=== PATIENT | male | born 1955 | race American Indian/Alaskan Native ===

== ENCOUNTER 2016-05-22 15:26 | Outpatient (CLI) | payer OTHER ==
--- NOTE | 2016-05-22 16:41 | XRay Report ---
Right shoulder 3 views: History: Right shoulder pain. Findings: Mild arthritic changes of the a.c. joint. Moderate to severe arthritic changes in the glenohumeral joint. No fracture dislocation or soft tissue calcification. Impression: Arthritic changes right shoulder.
== END 2016-05-22 15:27 | disposition home or self-care (01) ==
LOC: XRAY 15:26
PROVIDERS: ATTEND Internal Medicine
DX: M25.511 Pain in right shoulder (principal)

== ENCOUNTER 2016-05-23 15:31 | Outpatient (CLI) | payer OTHER ==
[2016-05-23 15:46] LABS: Basophils % (Auto) 0.9 % (0.0-1.8); Eosinophils % (Auto) 5.3 % (0.0-4.3); Hematocrit 41.5 % (35.5-45.6); Hemoglobin 14.5 gm/dl (11.8-15.2); Mean Corpuscular HGB Conc 35 % (32-34); Mean Corpuscular Hemoglobin 34 pg (28-32); Mean Corpuscular Volume 97 fl (84-94); Platelet Count 189 K/mm3 (140-440); Red Blood Count 4.27 M/mm3 (3.65-5.03); Red Cell Distribution Width 12.6 % (13.2-15.2)
[2016-05-23 16:21] LABS: Alanine Aminotransferase 49 units/L (7-56); Albumin 4.2 g/dL (3.9-5); Albumin/Globulin Ratio 1.4 %; Alkaline Phosphatase 81 units/L (35-129); Anion Gap 23 mmol/L; BUN/Creatinine Ratio 15.55; Bilirubin,Total 0.6 mg/dL (0.1-1.2); Blood Urea Nitrogen 14 mg/dL (9-20); Calcium 9.3 mg/dL (8.4-10.2); Carbon Dioxide 22 mmol/L (22-30); Chloride 102.2 mmol/L (98-107); Glucose 100 mg/dL (75-100); Sodium 143 mmol/L (137-145); Total Protein 7.3 g/dL (6.3-8.2)
[2016-05-23 16:22] LABS: Cholesterol 149 mg/dL (50-199); HDL Cholesterol 41 mg/dL (40-59); LDL Cholesterol,Direct 91 mg/dL (50-130); Triglycerides 88 mg/dL (2-149)
== END 2016-05-23 15:32 | disposition home or self-care (01) ==
LOC: LAB 15:31
PROVIDERS: ATTEND Internal Medicine
DX: I10 Essential (primary) hypertension (principal)
CPT/HCPCS: 36415; 80053; 80061; 84443; 85025